=== PATIENT | female | born 1995 | race Caucasian/White ===

== ENCOUNTER → 2017-04-12 | Outpatient (CLI) | payer OTHER | END | disposition home or self-care (01) | LOC: CFH 10:38 → EDBD 10:45 | PROVIDERS: ATTEND Family Medicine | DX: Z33.1 Pregnant state, incidental (principal); Z3A.09 9 weeks gestation of pregnancy | CPT/HCPCS: 76801 ==

== ENCOUNTER 2017-08-31 12:04 | Observation (INO) | payer OTHER ==
[~2017-08-31] VITALS: Ht 157.5 cm; Wt 62.2 kg
[2017-08-31 12:27] VITALS: BP 121/59
[2017-08-31] MEDS ORDERED: PREN-3 PO (12:32)
[2017-08-31 12:36] LABS: MICROSCOPIC INDICATED
[2017-08-31] MEDS ORDERED: D5%-LACTATED RINGERS 1,000 ML IV SCH (13:00)
[2017-08-31] MEDS ORDERED: ONDANSETRON 2MG/ML, 2ML IVPush PRN (13:00)
== END 2017-08-31 16:05 | disposition home or self-care (01) ==
LOC: LDOP 12:04 → LDIP 12:53
PROVIDERS: ADMIT Obstetrics & Gynecology; ATTEND Obstetrics & Gynecology
DX: O21.2 Late vomiting of pregnancy (principal); Z3A.29 29 weeks gestation of pregnancy
CPT/HCPCS: 59025; 81001; 87086; 96360; 96361; G0378; 99201; G0463; J7121

== ENCOUNTER 2017-11-03 03:58 | Inpatient (IN) | payer MEDICAID ==
[~2017-11-03] VITALS: Ht 160 cm; Wt 68.0 kg
[~2017-11-03 03:58] MED LIST: PREN-3 PO
[2017-11-03 04:07] VITALS: BP 138/92
[2017-11-03] MEDS ORDERED: D5%-LACTATED RINGERS 1,000 ML IV SCH (05:56)
[2017-11-03] MEDS ORDERED: OXYTOCIN 30U/ 0.9% NaCL 500ML 500 ML IV ONE (05:56)
[2017-11-03] MEDS ORDERED: FENTANYL PF 100 MCG/2ML IV PRN (06:00)
[2017-11-03] MEDS ORDERED: FENTANYL PF 100 MCG/2ML IVPush PRN (06:00)
[2017-11-03] MEDS ORDERED: SODIUM CHLORIDE FLUSH 10ML SYR IVF PRN (06:00)
[2017-11-03] MEDS ORDERED: METOCLOPRAMIDE 5 MG/ML, 2ML IVPush PRN (06:00)
[2017-11-03] MEDS ORDERED: TERBUTALINE 1 MG/ML, 1ML IVPush PRN ×2 (06:00)
[2017-11-03] MEDS ORDERED: TERBUTALINE 1 MG/ML, 1ML SQ PRN (06:00)
[2017-11-03] MEDS ORDERED: CALCIUM CARBONATE 500 MG TAB.CHEW PO PRN ×2 (06:00→15:30)
[2017-11-03] MEDS ORDERED: ONDANSETRON 2MG/ML, 2ML IVPush PRN (06:00)
[2017-11-03] MEDS ORDERED: SODIUM CITRATE/CITRIC ACID 30 ML UDC PO PRN (06:00)
[2017-11-03] MEDS ORDERED: ALUMINUM/MAG/SIMETHICONE 30 ML UDC PO PRN (06:00)
[2017-11-03] MEDS ORDERED: OXYTOCIN 30U/ 0.9% NaCL 500ML 500 ML ONE (06:05)
[2017-11-03] MEDS ORDERED: MISOPROSTOL 200 MCG TABLET ONE (06:05)
[2017-11-03] MEDS: LACTATED RINGERS 1,000 ML IV SCH ×2 (06:09→09:41)
[2017-11-03] MEDS ORDERED: FENTANYL PF 100 MCG/2ML ONE (06:23)
[2017-11-03 06:46] LABS: BASOPHILS # (AUTO) 0.03 x10^3/uL (0-0.3); BASOPHILS % (AUTO) 0 % (0-1); EOSINOPHILS # (AUTO) 0.01 x10^3/uL (0-0.8); EOSINOPHILS % (AUTO) 0 % (1-7); LYMPHOCYTES # (AUTO) 1.67 x10^3/uL (1-6.1); LYMPHOCYTES % (AUTO) 16 % (22-44); MD NO; MEAN CORPUSCULAR HEMOGLOBIN 30.8 pg (27.0-34.8); MEAN CORPUSCULAR HGB CONC 33.9 g/dL (32.4-35.8); MEAN CORPUSCULAR VOLUME 91.1 fL (80-100); MEAN PLATELET VOLUME 8.3 fL (7.4-10.4); MONOCYTES # (AUTO) 0.31 x10^3/uL (0-1.4); MONOCYTES % (AUTO) 3 % (2-9); NEUTROPHILS # (AUTO) 8.39 x10^3/uL (1.8-8.0); NEUTROPHILS % (AUTO) 81 % (42-75); PLATELET COUNT 263 x10^3/uL (130-400); RED BLOOD COUNT 4.17 x10^6/uL (3.82-5.3); RED CELL DISTRIBUTION WIDTH 14.5 % (9.6-15.2)
[2017-11-03 07:19] LABS: ALANINE AMINOTRANSFERASE 16 U/L (12-78); ALBUMIN 2.4 g/dL (3.4-5.0); ANION GAP 11 mmol/L (5-15); CALCIUM 8.1 mg/dL (8.5-10.1); CHLORIDE 106 mmol/L (98-107); CREATININE 0.73 mg/dL (0.55-1.02)
[2017-11-03] MEDS ORDERED: FENTANYL PF 200 MCG, BUPIVACAINE/PF 0.5%, 30ML 20 ML in SODIUM CHLORIDE 0.9% 76 ML EPIDCONT SCH (07:21)
[2017-11-03 07:22] LABS: ALKALINE PHOSPHATASE 154 U/L (45-117); BILIRUBIN,TOTAL 0.4 mg/dL (0.2-1.0); TOTAL PROTEIN 6.5 g/dL (6.4-8.2)
[2017-11-03] MEDS ORDERED: BUPIVACAINE 0.25% ONE (07:43)
[2017-11-03] MEDS ORDERED: FENTANYL PF 500 MCG, BUPIVACAINE/PF 0.5%, 30ML 62.5 ML in SODIUM CHLORIDE 0.9% 177.5 ML EPIDCONT SCH (08:00)
[2017-11-03] MEDS ORDERED: FENTANYL/BUPIV./NS/PF 250 ML EPIDCONT SCH (08:10)
[2017-11-03] MEDS ORDERED: LACTATED RINGERS 1,000 ML IV SCH (08:10)
[2017-11-03] MEDS ORDERED: LACTATED RINGERS 1,000 ML IVBOLUS PRN (08:30)
[2017-11-03] MEDS ORDERED: EPHEDRINE 50 MG/ML, 1ML IVPush PRN (08:30)
[2017-11-03] MEDS ORDERED: OXYTOCIN 30U/ 0.9% NaCL 500ML 500 ML IV PRN (10:59)
[2017-11-03] MEDS: OXYTOCIN 30U/ 0.9% NaCL 500ML 500 ML IV SCH (15:23)
[2017-11-03] MEDS ORDERED: MEASLES,MUMPS&RUBELLA VACC/PF 0.5 ML SQ PRN (15:30)
[2017-11-03] MEDS ORDERED: RHOGAM FROM BLOOD BANK 1 NOTE EA IM/IV ONE (15:30)
[2017-11-03] MEDS ORDERED: OXYcodone IR 5MG TABLET PO PRN (15:30)
[2017-11-03] MEDS ORDERED: METHYLERGONOVINE 0.2 MG/ML IM PRN (15:30)
[2017-11-03] MEDS ORDERED: DIPH,PERTUSS(ACELL),TET VAC/PF NC IM-VACC PRN (15:30)
[2017-11-03] MEDS ORDERED: MAGNESIUM HYDROXIDE 8%, 30ML UDC PO PRN (15:30)
[2017-11-03] MEDS ORDERED: ONDANSETRON 2MG/ML, 2ML IV PRN (15:30)
[2017-11-03 18:20] VITALS: BP 106/62
[2017-11-03 19:20] VITALS: BP 115/77
[2017-11-03 23:36] VITALS: BP 110/73
[2017-11-04] MEDS: IBUPROFEN 600 MG TABLET PO PRN ×2 (00:30→14:58)
[2017-11-04] MEDS: OXYcodone/APAP 5/325MG TABLET PO PRN ×2 (00:30→14:58)
[2017-11-04] MEDS: DOCUSATE 100 MG CAPSULE PO PRN ×2 (00:30→09:05)
[2017-11-04] MEDS: OXYTOCIN 30U/ 0.9% NaCL 500ML 500 ML IV SCH ×2 (01:23→02:21)
[2017-11-04 03:12] VITALS: BP 95/58
[2017-11-04 05:48] LABS: MEAN CORPUSCULAR HEMOGLOBIN 31.2 pg (27.0-34.8); MEAN CORPUSCULAR HGB CONC 33.8 g/dL (32.4-35.8); MEAN CORPUSCULAR VOLUME 92.4 fL (80-100); MEAN PLATELET VOLUME 8.7 fL (7.4-10.4); PLATELET COUNT 230 x10^3/uL (130-400); RED BLOOD COUNT 3.49 x10^6/uL (3.82-5.3)
[2017-11-04 06:43] LABS: BASOPHILS # (AUTO) 0.07 x10^3/uL (0-0.3); BASOPHILS % (AUTO) 0 % (0-1); EOSINOPHILS # (AUTO) 0.02 x10^3/uL (0-0.8); EOSINOPHILS % (AUTO) 0 % (1-7); LYMPHOCYTES # (AUTO) 2.35 x10^3/uL (1-6.1); LYMPHOCYTES % (AUTO) 14 % (22-44); MD SCAN; MONOCYTES # (AUTO) 0.45 x10^3/uL (0-1.4); MONOCYTES % (AUTO) 3 % (2-9); NEUTROPHILS % (AUTO) 82 % (42-75)
[2017-11-04 07:35] VITALS: BP 105/65
[2017-11-04] MEDS: PRENATAL VIT/IRON/FA 1 EACH TABLET PO SCH (09:05)
[2017-11-04 12:10] VITALS: BP 112/75
[2017-11-04 19:25] VITALS: BP 104/66
[2017-11-05] MEDS: OXYTOCIN 30U/ 0.9% NaCL 500ML 500 ML IV SCH (07:23)
[2017-11-05 08:15] VITALS: BP 114/75
[2017-11-05] MEDS: PRENATAL VIT/IRON/FA 1 EACH TABLET PO SCH (10:57)
== END 2017-11-05 14:26 | disposition home or self-care (01) | DRG 775 ==
LOC: LDOP 03:58 → LDIP 06:11 → 2NW 17:30
PROVIDERS: ADMIT Obstetrics & Gynecology; ATTEND Obstetrics & Gynecology
PROC: 10D07Z6 Extraction of Products of Conception, Vacuum, Via Natural or Artificial Opening (ICD-10-PCS; principal; 2017-11-04)
PROC: 0KQM0ZZ Repair Perineum Muscle, Open Approach (ICD-10-PCS; 2017-11-04)
PROC: 3E0R3BZ Introduction of Anesthetic Agent into Spinal Canal, Percutaneous Approach (ICD-10-PCS; 2017-11-04)
PROC: 00HU33Z Insertion of Infusion Device into Spinal Canal, Percutaneous Approach (ICD-10-PCS; 2017-11-04)
DX: O76 Abnormality in fetal heart rate and rhythm complicating labor and delivery (principal); Z37.0 Single live birth; O77.0 Labor and delivery complicated by meconium in amniotic fluid; O70.1 Second degree perineal laceration during delivery; Z23 Encounter for immunization; Z3A.39 39 weeks gestation of pregnancy
CPT/HCPCS: 36415; 80053; 82803; 85025; 86850; 86900; 90715; J2590; J7120